=== PATIENT | female | born 1970 | race Caucasian/White ===

== ENCOUNTER 2020-05-04 09:19 | Emergency (ER) | payer OTHER, SELFPAY ==
[2020-05-04 09:20] VITALS: BP 169/95; PULSE 117; RESP 20; TEMP 36.2; O2SAT 98; BMI 48.3
--- NOTE | 2020-05-04 09:30 | EKG12_ITS ---
Test Reason : CP Blood Pressure : / mmHG Vent. Rate : 106 BPM Atrial Rate : 106 BPM P-R Int : 174 ms QRS Dur : 126 ms QT Int : 330 ms P-R-T Axes : 051 -58 066 degrees QTc Int : 438 ms Sinus tachycardia Left axis deviation Left ventricular hypertrophy with QRS widening Cannot rule out Septal infarct , age undetermined Abnormal ECG Confirmed by DARRYL IBARRA, MANGO ([id number]), writer editor LEONARDO PAREDES ([id number]) on 05/08/2020 12:30:06 P M Referred By: SARAHI Confirmed By:NGOZI ANDREWS MD
--- NOTE | 2020-05-04 09:32 | ED.DCSUM_ITS ---
History of Present Illness Chief Complaint: Palpitations Informant: Patient Narrative: 50-year-old female with past medical history of hyperlipidemia, hypertension, diabetes presents with concern for palpitations. States that she awoke approximately 6 hours ago to her heart racing. States that she was having trouble getting her breath. Denies any chest pain. Denies any nausea, vomiting, diaphoresis. States she has not had this previously in the past. Patient is a former smoker. Denies any drugs or alcohol. Patient does not drink excessive caffeine. Denies any history of DVT or pulmonary embolism. Denies any recent long trips or hospitalizations. Past Medical History - Allergies and Home Meds Allergies/Adverse Reactions: Allergies Penicillins Allergy (Verified 05/04/20 09:26) Rash Primary Care Physician: Chuckie Hays,Out of [NON-STAFF] - Prior records reviewed: Yes Past Medical History: - - HTN, HLD, DMII Surgical History: appendectomy, - - tubal ligation Lives: With Family Smoking Status: Former smoker Alcohol: None Drugs: None Review of Systems General: Denies: Chills, Fever, Sweats Eyes: Denies: Visual changes - bilaterally, Diplopia ENT: Denies: Rhinorrhea, Sore throat Cardiovascular: Reports: Palpitations. Denies: Chest pain Respiratory: Reports: Dyspnea. Denies: Cough, Dyspnea on exertion Gastrointestinal: Denies: Abdominal pain, Nausea, Vomiting, Diarrhea, Melena, Hematochezia Genitourinary: Denies: Dysuria, Hematuria, Frequency Musculoskeletal: Denies: Back pain, Extremity Pain Skin: Denies: Rash, Wounds Neurological: Denies: Headache, Weakness, Numbness Physical Exam Vital Signs/Narrative: Vital Signs Temp Pulse Resp BP Pulse Ox 05/04/20 09:20 97.1 F L 117 H 20 H 169/95 H 98 Inital Vital Signs reviewed: Yes General: Well nourished, Well developed, No Acute Distress Head: Normocephalic, Atraumatic Eyes: Perrl, EOMI ENT: Moist mucous membranes, No rhinorrhea Neck: Supple, Nontender Cardiovascular: Regular rhythm, No murmurs, Tachycardia Respiratory: No distress, CTA bilaterally, Chest nontender Abdomen: Soft, Nontender, Nondistended, Normal bowel sounds Back: Nontender, Normal Inspection Extremities: Nontender, No edema Skin: Normal color, No rash Neurological: Alert, Oriented x3, Cranial nerves II-XII grossly intact, Normal Strength, Normal Sensation Psychological: Normal affect, Normal Mood Diagnostic/Tx/Re-eval Chest X-Ray - ED: 1 View, Read by ED Physician, Read by Radiologist, Normal Clinical Impression(s) from Imaging Studies Chest X-Ray 05/04/20 09:55 IMPRESSION: Normal x-ray examination of the chest. Electronically Signed: Angel Singh MD at 10:09 EST Tel , Service support , Laboratory Data 05/04/20 05/04/20 05/04/20 09:35 09:35 09:50 WBC 7.3 RBC 5.41 H Hgb 14.2 Hct 45.5 MCV 84.1 MCH 26.2 L MCHC 31.2 L RDW Std Deviation 42.6 RDW Coeff of [place] 13.8 Plt Count 296 MPV 9.7 Immature Gran % (Auto) 0.300 Neut % (Auto) 68.0 Lymph % (Auto) 24.1 [place] % (Auto) 5.5 Eos % (Auto) 1.7 Baso % (Auto) 0.4 Absolute Neuts (auto) 4.9 Absolute Lymphs (auto) 1.75 Nucleated RBC % 0 D-Dimer Quant (PE/DVT) 0.32 Sodium 135 L Potassium 3.9 Chloride 102 Carbon Dioxide 24.0 Anion Gap 9 BUN 13 Creatinine 0.80 Estim Creat Clear Calc 97.92 Est GFR (MDRD) Af Amer 96 Est GFR (MDRD) Non-Af 80 BUN/Creatinine Ratio 16.2 Glucose 265 H Calcium 9.3 Magnesium 2.1 Troponin I < 0.015 TSH 2.08 - Rhythm Strip Rhythm Strip: Sinus Tach Rate: 106 - EKG Initial EKG Interpretation: Sinus Tachycardia - Is tachycardia at 106 bpm. IL interval of 174 ms. QRS widening at 126 ms. QTC of 438 ms. Interventricular conduction delay. - Medical Decision Making Patient appears well and nontoxic. Initially tachycardic. EKG shows sinus tachycardia with a slightly widened QRS. Troponin negative. TSH negative. D- dimer negative. Chest x-ray interpreted by myself shows no cardiomegaly or infiltrate. Radiology concurs. Patient having no active chest pain. On my reevaluation at 10 AM patient's heart rate has decreased to approximately 93 spontaneously. Pulse oximetry remains above 95%. Spoke with cardiology on-call Dr. Simmons who advised adequate fluid hydration and felt this may be reflex tachycardia from her current medications. Patient will follow up with cardiology within the next 5 to 7 days. Asked to return for new or worsening symptoms. Patient agreeable and stable at time of discharge. Impression: 1. Palpitations 2. Tachycardia?resolved ED Disposition - Plan for ED Patient: Disposition: Home or Assisted Living Instructions: ED Palpitations Referrals: Ridge Bernla MD [STAFF PHYSICIAN] - 5-7 Days
[2020-05-04 09:53] LABS: Absolute Lymphocyte Count 1.75 X10^3/uL (0.83-4.51); Absolute Neutrophil Count 4.9 X10^3/uL (2.0-7.7); Basophil# 0.03 X10^3/uL; Basophil% 0.4 % (0-1); Eosinophil# 0.12 X10^3/uL; Eosinophils% 1.7 % (0-5); Hematocrit 45.5 % (37-47); Hemoglobin 14.2 g/dL (12.0-15.0); Lymphocyte # 1.75 X10^3/ul (4.0); Lymphocyte % 24.1 % (19-41); Mean Corp Hgb Conc 31.2 g/dL (32-36); Mean Corpuscular Hgb 26.2 pg (27.0-32.0); Mean Corpuscular Volume 84.1 fL (81-99); Mean Platelet Vol. 9.7 fl (6.2-12.0); Monocyte% 5.5 % (0-10); NRBC Flagged by Analyzer 0 % (0-5); Neutrophil # 4.93 X10^3/uL (2.7-7.7); Platelet Count 296 K/mm3 (150-450); RBC Distribution Width CV 13.8 % (11.6-14.6); RBC Distribution Width SD 42.6 fl (35.1-43.9); Red Blood Count 5.41 M/mm3 (4.2-5.4); White Blood Count 7.3 K/mm3 (4.4-11.0)
--- NOTE | 2020-05-04 09:55 | RAD_ITS ---
STUDY: X-RAY CHEST REASON FOR EXAM: Female, 50 years old. AFIB TECHNIQUE: Single AP portable view of the chest. COMPARISON: None. FINDINGS: The lungs are clear and expanded. There is no demonstrated pleural abnormality. Normal size heart. Normal mediastinum and fermin. Normal visualized pulmonary arteries. Normal visualized aortic arch and descending thoracic aorta. Normal visualized thoracic spine. Normal visualized ribs, clavicles, and shoulders. There is no demonstrated abnormality of the visualized soft tissue structures of the upper abdomen. RAD/Chest 1 View (Portable) IMPRESSION: Normal x-ray examination of the chest. Electronically Signed: Angel Singh MD at 10:09 EST Tel , Service support ,
[2020-05-04 10:01] LABS: D-Dimer Quantitative (DVT/PE) 0.32 FEU/ug/m (0.27-0.49)
[2020-05-04 10:26] LABS: Anion Gap 9 (5-15); BUN 13 mg/dL (7-18); BUN/Creat Ratio 16.2 RATIO (10-20); Calcium,Total 9.3 mg/dL (8.5-10.1); Chloride 102 mmol/L (98-107); EST Glomerular Filtration Rate 80 mL/min (>60); Est Glom Filt Rate - Afr Amer 96 mL/min (>60); Estimated Creatinine Clearance 97.92 ml/min; Glucose 265 mg/dL (74-106); Magnesium 2.1 mg/dL (1.6-2.6); Potassium 3.9 mmol/L (3.5-5.1); Sodium Level 135 mmol/L (136-145); Thyroid Stim Hormone (TSH) 2.08 uIU/mL (0.358-3.74)
[2020-05-04 12:07] VITALS: BP 117/76; PULSE 92; RESP 18; O2SAT 99
== END 2020-05-04 11:50 | disposition home or self-care (01) ==
PROVIDERS: Emergency Provider Emergency Medicine; PCP Family Medicine
DX: R00.2 Palpitations (principal); R00.0 Tachycardia, unspecified; I10 Essential (primary) hypertension; E11.9 Type 2 diabetes mellitus without complications; Z87.891 Personal history of nicotine dependence
CPT/HCPCS: 71045; 80048; 83735; 84443; 84484; 85025; 85379; 93005; 99285; J7030; A4216

== ENCOUNTER → 2020-07-26 14:32 | Outpatient (CLI) | payer OTHER, SELFPAY ==
[2020-07-06 16:21] VITALS: BMI 46.7
--- NOTE | 2020-07-26 14:33 | ECHOCS_ITS ---
Reason For Study: Arrhythmia Procedure This was a 2D Doppler, Color Flow transthoracic echocardiogram. The study was technically difficult. Contrast injection was performed. Exam performed in department. Left Ventricle Normal LV size. Left ventricular systolic function is normal. The estimated ejection fraction is 60 %. Transmitral doppler flow suggestive of impaired relaxation of left ventricle. No regional wall motion abnormalities noted. Right Ventricle Normal RV size. Normal systolic function. Atria The left atrium is mildly enlarged. Normal right atrium. No doppler evidence for ASD. Mitral Valve There is no mitral annular calcification. Normal mitral valve. Mild (1+) mitral valve insufficiency. Tricuspid Valve Normal tricuspid valve. Mild tricuspid valve insufficiency. Right ventricular systolic pressure estimated to be 27 mmHg. Aortic Valve Trisinus/trileaflet aortic valve. Normal aortic valve. Pulmonic Valve The pulmonic valve is not well visualized. Trivial pulmonic valve insufficiency. Great Vessels Normal sized aortic root. Pericardium/Pleural No pericardial effusion. Medication Diluted definity 3ml given slow IV push to enhance endocardial definition. MMode/2D Measurements & Calculations LVIDd: 5.2 cm IVSd: 1.4 cm Ao root diam: 3.1 cm LVIDs: 3.3 cm LVPWd: 0.96 cm RVDd: 3.2 cm FS: 36.3 % LAV(MOD-bp): 48.1 ml LVAd ap4: 30.6 cm2 SV(MOD-sp4): 61.9 ml LAV(MOD-bp) Indexed: 17.5 ml/m2 LVLd ap4: 7.6 cm LAV(MOD-sp2): 31.4 ml EDV(MOD-sp4): 99.7 ml LAV(MOD-sp4): 58.1 ml EDV(sp4-el): 103.8 ml LVAs ap4: 16.8 cm2 LVLs ap4: 6.2 cm ESV(MOD-sp4): 37.8 ml ESV(sp4-el): 38.4 ml EF(MOD-sp4): 62.1 % EF(sp4-el): 63.0 % SV(sp4-el): 65.4 ml LA A4 area: 21.0 cm2 LA dimension(2D): 4.8 cm RA A4 area: 16.5 cm2 Doppler Measurements & Calculations MV E max julio c: 48.3 cm/sec Lat Peak E' Julio C: 8.6 cm/sec Med Peak E' Julio C: 5.7 cm/sec MV A max julio c: 78.1 cm/sec E/E' lat: 5.6 E/E' med: 8.5 MV E/A: 0.62 Ao V2 max: 181.9 cm/sec LV V1 max: 117.4 cm/sec PA V2 max: 128.1 cm/sec Ao max P.2 mmHg LV V1 max P.5 mmHg Ao V2 mean: 118.7 cm/sec Ao mean P.3 mmHg Ao V2 VTI: 29.3 cm TR max julio c: 245.4 cm/sec TR max P.1 mmHg ECHO/Echo Complete W/ Contrast Interpretation Summary The study was technically difficult. Contrast injection was performed. Left ventricular systolic function is normal. The estimated ejection fraction is 60 %. The left atrium is mildly enlarged. Mild (1+) mitral valve insufficiency. Mild tricuspid valve insufficiency. Trivial pulmonic valve insufficiency. Right ventricular systolic pressure estimated to be 27 mmHg. Transmitral doppler flow suggestive of impaired relaxation of left ventricle Ordering Physician: Ridge Bernal Referring Physician: Latanya Clay Performed By: Davida Crystal, THORCS, RVT
== END ==
PROVIDERS: PCP Family Medicine; Referring Provider Internal Medicine Cardiovascular Disease; Visit Provider Internal Medicine Cardiovascular Disease
DX: I51.7 Cardiomegaly (principal); I49.8 Other specified cardiac arrhythmias
CPT/HCPCS: 93306; Q9957; A4216; C8929

== ENCOUNTER 2022-01-31 09:05 | Emergency (ER) | payer OTHER, SELFPAY ==
[2022-01-31] VITALS (8 sets, daily range): BP systolic 119–145; BP diastolic 52–88; PULSE 67–77; RESP 18–24; TEMP 523.3–974; O2SAT 93–100; BMI 44.4
--- NOTE | 2022-01-31 09:13 | RAD_ITS ---
STUDY: X-RAY - RIGHT SHOULDER REASON FOR EXAM: Female, 51 years old. History of fall. Shoulder pain. TECHNIQUE: 2 view(s) of the shoulder. COMPARISON: None. FINDINGS: Inferior anterior dislocation of the right glenohumeral joint. Normal acromioclavicular joint. Normal acromion. Normal humeral head and visualized proximal humerus. The soft tissue structures are unremarkable. Normal visualized pulmonary apex. RAD/Shoulder min 2 Views IMPRESSION: Inferior anterior dislocation of the right glenohumeral joint. Electronically Signed: Greg Obrien MD at 9:50 EST ,
--- NOTE | 2022-01-31 09:52 | EDS_ITS ---
HPI History of Present Illness HPI Narrative: PainPatient presents with right shoulder injury that occurred today. Patient states she tripped and fell. Patient states she landed on her right shoulder. Patient describes her pain as aching. Patient states it is worse with any movement. Patient states it is better with rest. Patient denies any paresthesias or weakness. Patient denies any other injuries. Patient states that she recently was diagnosed with COVID and states most of her symptoms have resolved. Patient states she was having a cough and runny nose with that. Chief Complaint: Upper Extremity Injury Informant: patient Occured/Mechanism Mechanism/Context: Yes fall Onset/Context/Timing Onset: Today Context: Sudden Onset Timing: Continuous Quality of Pain: Aching Location: Right shoulder Worsened by: Movement Relieved by: Rest Associated Symptoms Associated Symptoms: Negative for Parasthesia, Weakness or Loss of Funtion [facility] Medical History (Updated 01/31/22 @ 11:[address] Tim Poole, DO) Essential hypertension Mixed hyperlipidemia Palpitations Sinus tachycardia Type 2 diabetes mellitus Home Medications aspirin 81 mg tablet,delayed release 81 mg PO DAILY 06/13/20 [History Last Taken Unknown] cholecalciferol (vitamin D3) 25 mcg (1,000 unit) tablet 25 mcg PO DAILY 06/13/20 [History Last Taken Unknown] ferrous sulfate 325 mg (65 mg iron) tablet 325 mg PO DAILY 06/13/20 [History Last Taken Unknown] hydrochlorothiazide 25 mg tablet 25 mg PO DAILY 06/13/20 [History Last Taken Unknown] lisinopril 40 mg tablet 40 mg PO DAILY 06/13/20 [History Last Taken Unknown] metformin 1,000 mg tablet 1,000 mg PO BID #1 TAB 06/13/20 [Rx Last Taken Unknown] multivitamin 1 tablet PO DAILY #1 TAB 06/13/20 [Rx Last Taken Unknown] omeprazole 20 mg tablet,delayed release 20 mg PO DAILY 06/13/20 [History Last Taken Unknown] dulaglutide 1.5 mg/0.5 mL subcutaneous pen injector (Trulicity) 1.5 mg subcut QWEEK 07/06/20 [History Last Taken Unknown] ropinirole 0.25 mg tablet (Requip) 0.25 mg PO QHS 07/06/20 [History Last Taken Unknown] sertraline 50 mg tablet 50 mg PO DAILY 07/06/20 [History Last Taken Unknown] hydrocodone-acetaminophen 5-325mg 5mg-325mg 1 tab PO Q6H PRN PRN Pain 3 days #10 TABLETS 01/31/22 [Rx Last Taken Unknown] Allergy/AdvReac Type Severity Reaction Status Date / Time Penicillins Allergy Rash Verified 11/24/20 12:50 Family History Mother Atrial fibrillation Congestive heart failure (CHF) Brother Diabetes Surgical History History of appendectomy History of tubal ligation Social History Smoking Status: Former smoker alcohol intake: current details: occasional substance use type: does not use caffeine: Yes Type: coffee Number of servings: 1 ROS ROS ED Constitutional Constitutional ED: Denies chills or fever(s) Eyes Eyes: Denies blurry vision or change in vision ENT ENT ED: Reports rhinorrhea; Denies sore throat Cardiovascular Cardiovascular: Denies chest pain or palpitations Respiratory/Chest Respiratory/Chest: Reports cough; Denies dyspnea Gastrointestinal Gastrointestinal: Denies nausea or vomiting Genitourinary Genitourinary ED: Denies dysuria or hematuria Musculoskeletal Musculoskeletal: Denies back pain or neck pain Integumentary Denies abscess or rash Neurologic Neurologic: Denies headache(s) or weakness Allergic/Immunologic Allergic/Immunologic ED: Denies mouth swelling or urticaria EXAM Physical Exam Const Vital Signs: 01/31/22 09:06 01/31/22 09:37 Temperature 974 F H Temperature Source Temporal Pulse Rate 67 Respiratory Rate 18 Blood Pressure 127/52 H Blood Pressure Mean 77 Pulse Ox 99 93 Oxygen Delivery Method Room Air Room Air Positive well nourished, well developed and obese General Appearance ED: well developed and NAD Nutritional Appearance: obese HEENT Reports moist mucous membranes Neck full ROM Extremity Extremity Narrative: There is tenderness and deformity of the right shoulder. There is no bony crepitance or step-off. Range of motion was limited in all motions of the right shoulder secondary to pain. Radial pulses are equal bilateral. Strength is 5/5 in the radial, median, and ulnar areas. Sensation was intact to light touch in the radial, median, ulnar, and axillary areas. There is full range of motion of the elbow, wrist, and hand. Neuro oriented x3, CN's II-XII intact bilaterally, moves all extremities, no focal motor deficits and no sensory deficits noted Sensorium / Orientation: alert Motor Exam: strength 5/5 throughout Psych mental status grossly normal [facility] [place] Narrative Medical decision making narrative: X-rays of the right shoulder were obtained. There are 2 views. On my interpretation, there is a dislocation of the glenohumeral joint. There are no acute fractures noted. Radiologist also interpreted the x-rays and agrees. Patient was advised of the need for sedation for reduction of her shoulder. Patient was advised of the procedure. Patient was given the opportunity ask questions. She had no further questions. Patient signed consent. Patient was placed on continuous cardiac and pulse oximeter monitors. Patient was given a total dose of 100 mg of propofol. The shoulder was reduced using traction countertraction method. Patient tolerated the procedure well. There were no hypoxic episodes noted. There are no dysrhythmias noted. Repeat x-rays of the right shoulder were obtained. There are 2 views. On my interpretation, the dislocation has been reduced. There are no acute fractures. Patient was placed in a sling and swath. Patient was instructed to keep ice on her right shoulder. Patient was given a prescription for a short course of [place]. Patient was instructed to follow-up with her primary care physician in 5 to 7 days. Patient was also given a referral for orthopedics. Patient understood and was agreeable with the plan. All questions were answered. Radiography Diagnostic Testing: Clinical Impression(s) from Imaging Studies Shoulder X-Ray 01/31/22 09:13 IMPRESSION: Inferior anterior dislocation of the right glenohumeral joint. Electronically Signed: Greg Obrien MD at 9:50 EST , Procedures Other Procedures Procedure(s): Patient was advised of the need for sedation for reduction of her shoulder. Patient was advised of the procedure. Patient was given the opportunity ask questions. She had no further questions. Patient signed consent. Patient was placed on continuous cardiac and pulse oximeter monitors. Patient was given a total dose of 100 mg of propofol. The shoulder was reduced using traction countertraction method. Patient tolerated the procedure well. There were no hypoxic episodes noted. There are no dysrhythmias noted. Discharge Plan Triage Chief Complaint: Upper Extremity Injury ED Provider: Tim Poole Dx/Rx/DC Orders Clinical Impression: Anterior dislocation of right shoulder, Essential hypertension, Type 2 diabetes mellitus, Morbid obesity with BMI of 40.0-44.9, adult Instructions: ED Dislocation: Shoulder (Reduced) Prescriptions: New hydrocodone-acetaminophen [hydrocodone-acetaminophen] 1 TABLET tablet 1 tab PO Q6H PRN PRN (Reason: Pain) 3 Days Qty: 10 0RF No Action Trulicity 1.5 mg/0.5 mL pen injector 1.5 mg SC QWEEK sertraline 50 mg tablet 50 mg PO DAILY ropinirole [Requip] 0.25 mg tablet 0.25 mg PO QHS Rx Instructions: administer 1-3 hours before bedtime metformin 1,000 mg tablet 1,000 mg PO BID Qty: 1 0RF ferrous sulfate 325 mg (65 mg iron) tablet 325 mg PO DAILY multivitamin Tablet 1 tablet PO DAILY Qty: 1 0RF lisinopril 40 mg tablet 40 mg PO DAILY omeprazole 20 mg tablet,delayed release (DR/EC) 20 mg PO DAILY hydrochlorothiazide 25 mg tablet 25 mg PO DAILY cholecalciferol (vitamin D3) 25 mcg (1,000 unit) tablet 25 mcg PO DAILY aspirin 81 mg tablet,delayed release (DR/EC) 81 mg PO DAILY Primary Care Provider: Latanya Clay Referrals: Latanya Clay MD [Primary Care Provider] - 5-7 Days Henry Conrad MD [Med Staff - Active Staff] - 5-7 Days Disposition Disposition: Home, Self Care
[2022-01-31] MEDS: Morphine 4 MG/ML Syringe IV (10:41)
--- NOTE | 2022-01-31 11:12 | RAD_ITS ---
STUDY: X-RAY - RIGHT SHOULDER REASON FOR EXAM: Female, 51 years old. POST REDUCTION TECHNIQUE: 2 view(s) of the shoulder. COMPARISON: Comparison is made with prior study done earlier today. FINDINGS: Satisfactory reduction of the right shoulder dislocation. Normal acromioclavicular joint. Normal acromion. Normal humeral head and visualized proximal humerus. The soft tissue structures are unremarkable. Normal visualized pulmonary apex. RAD/Shoulder min 2 Views IMPRESSION: Satisfactory reduction of the right shoulder dislocation. Electronically Signed: Greg Obrien MD at 11:22 EST ,
[2022-01-31] MEDS: Propofol 200 MG/20 ML Vial IV BOLUS (11:16)
== END 2022-01-31 11:50 | disposition home or self-care (01) ==
PROVIDERS: Emergency Provider Emergency Medicine; PCP Family Medicine; Visit Provider Emergency Medicine
DX: S43.014A Anterior dislocation of right humerus, initial encounter (principal); E66.01 Morbid (severe) obesity due to excess calories; E11.9 Type 2 diabetes mellitus without complications; I10 Essential (primary) hypertension; E78.2 Mixed hyperlipidemia; Z87.891 Personal history of nicotine dependence; W18.30XA Fall on same level, unspecified, initial encounter
CPT/HCPCS: 23650; 73030; 96374; 99152; 99284; J7030; A4216

== ENCOUNTER → 2022-02-27 | Outpatient (CLI) | payer OTHER, SELFPAY ==
--- NOTE | 2022-02-27 12:45 | RAD_ITS ---
CLINICAL HISTORY: Female, 52 years old. Right shoulder pain. PROCEDURE: ARTHROGRAM - RIGHT SHOULDER CONSENT: The procedure as well as the benefits and possible complications including infection and bleeding were expanded to the patient. Informed consent was obtained. FLUOROSCOPY TIME (if supplied): (36 seconds) minutes/seconds. Injection Information: 10 cc of dilute MRI contrast. Number of images obtained: 5 TECHNIQUE: (All elements of maximal sterile barrier technique followed, including US elements as applicable) The patient was in the supine position. The overlying skin was prepped and draped in the usual sterile fashion. Following local anesthetic application and under direct fluoroscopic guidance, a 22-gauge spinal needle was placed into the shoulder joint. 2 cc of ISOVUE 300 was injected for confirmation. Following this, 10 cc of dilute MRI contrast was injected the patient tolerated the procedure well. RAD/Arthrogram Shoulder w/ MRI IMPRESSION: Successful right shoulder arthrogram. Electronically Signed: Greg Obrien MD at 13:46 EST ,
--- NOTE | 2022-02-27 12:49 | MRI_ITS ---
STUDY: MRI ARTHROGRAM OF RIGHT SHOULDER REASON FOR EXAM: Female, 52 years old. History of anterior dislocation and bony Bankart lesion. TECHNIQUE: Standardized fat and water weighted pulse sequences were obtained in all 3 orthogonal planes after the intra-articular administration of a solution containing 10 cc of Clariscan contrast. COMPARISON: X-rays of the right shoulder dated February 06, 2022 showing bony Bankart. FINDINGS: Adequate distention of the glenohumeral joint with contrast. Marked thinning/attenuation of the supraspinatus tendon with a small full-thickness partial width tear of the far anterior fibers measuring 5 mm in diameter (coronal series 3 images 11-14). Marked thinning/attenuation of the infraspinatus tendon with no full thickness tear (coronal series 4 images 7-11). Subscapularis tendinosis with thickening without a full-thickness tear (axial series 2 images 10-14). Normal teres minor tendon. Normal supraspinatus muscle. Normal infraspinatus muscle. Normal subscapularis muscle. Normal teres minor muscle. Mild thinning of the articular cartilage of the glenohumeral joint (axial series 2 image 10). Small Hill-Sachs deformity (axial series 2 image 7). Normal biceps labral complex. Normal intracapsular long biceps tendon. Blunting of the anterior and inferior glenoid labrum with a minimally displaced bony Bankart lesion (axial series 2 images 11-15). Normal capsulo- ligamentous complex. Normal rotator interval. AC joint hypertrophy with narrowing of the subacromial space (coronal series 4 image 16). There is a Type II morphology (curved), with a neutral orientation. There is no subacromial-subdeltoid bursal fluid. Normal visualized coracohumeral and coracoacromial ligaments. Normal quadrilateral space. Normal axillary space. Normal deltoid muscle. Normal trapezius muscle. MRI/Upper Ext Jt Only W/Contrast IMPRESSION: Marked thinning/attenuation of the supraspinatus tendon with a small full-thickness partial width tear of the far anterior fibers. Thinning/attenuation of the infraspinatus with no full-thickness tear. Subscapularis tendinosis with thickening without a full-thickness tear. Mild thinning of the articular cartilage of the glenohumeral joint. Small Hill-Sachs deformity. Blunting of the anterior and inferior glenoid labrum with a minimally displaced bony Bankart lesion. AC joint hypertrophy with narrowing of the subacromial space. Electronically Signed: Mynor Simpson, at 10:46 EST ,
[2022-02-27] MEDS: Lidocaine 2% (5ml sdv) 5 ML VIAL.MPF INFILT (12:55)
[2022-02-27] MEDS: Gadoterate Meglumine Diluted 10 ML, Iopamidol 5 ML, Lidocaine 1% (20 ml mdv) 5 ML, Epin... INTRAARTIC (12:58)
[2022-02-27] MEDS: Iopamidol 10 ML in Syringe 1 EACH 600 ML INTRAARTIC (12:58)
== END | disposition home or self-care (01) ==
LOC: RAD 12:28
PROVIDERS: PCP Family Medicine; Referring Provider Orthopaedic Surgery Sports Medicine; Visit Provider Orthopaedic Surgery Sports Medicine
DX: S43.014A Anterior dislocation of right humerus, initial encounter (principal); M75.121 Complete rotator cuff tear or rupture of right shoulder, not specified as traumatic; M24.111 Other articular cartilage disorders, right shoulder; M75.81 Other shoulder lesions, right shoulder
CPT/HCPCS: 23350; 73222; 77002; Q9967

== ENCOUNTER 2022-03-06 16:30 | Outpatient (RCR) | payer OTHER, SELFPAY ==
--- NOTE | 2022-02-18 14:57 | HP.PTEVAL ---
Patient's Visit Information SINAN SPENCER is a 51 year old F referred to Physical Therapy by Dr. Henry Conrad MD with a diagnosis of Anterior Dislocation R shoulder. Date of Evaluation: 02/18/22 Physical Therapist: ELIZABETH [place] - Visit Plan Frequency: 2-3x /Week Duration: 2 Months Plan: 2-3X/ week for 8 weeks for R PROM, AAROM, AROM, scapular and and RC strengthening per tolerance below 90 degrees and no ER greater than 40 degrees due to anterior dislocation. Please no extreme R shoulder horizontal ABD ROM due to dislocation as well for 6 weeks ( 03-20-22) - Subjective She tripped on the crack on the driveway and she fell with her arms outstretched and she dislocated her R shoulder. DOI was 01-31-22. She saw Dr Artis on 02-06-22. There was a fracture in her shoulder and anterior dislocation. She had to go to the ER and they had to but her shoulder back in place. He has been trying to get an MRI but the insurance has denied it. She is in the normal sling for 2 weeks. She rolled over on her R side in the middle of the night the other night and when she moved it hurt so bad. She does not think that it was re-dislocated and then it was sore all weekend. said to not use her arm and only bend her elbow. - Pain R shoulder pain Pain Intensity (Out of 10): 0 Pain Intensity Range: 8 Comment: with movement - Objective Pt is to wear her sling until this Wed. R handed: R shoulder PROM: flexion 160 degrees and Abd to 160 degrees. ER to 40 degrees (but therapist stopped the ROM due to avoiding end range per order for 6 weeks). With HEP and ice/ heat as needed. - Balance/Special Test Scores Quick DASH Score: 65.9075 - Goals Goal 1:: I HEP Goal Time Frame: 8-12 Weeks Goal 2:: Be able to return to full use of R arm pain free Goal Time Frame: 8-12 Weeks Goal 3:: Increase R shoulder Full Active ROM pain free Goal Time Frame: 8-12 Weeks - Rehabilitation Potential Rehabilitation Potential: Good - Anticipated Interventions Patient/Client Instruction: Educate patient on: Condition, Plan of Care For the Purpose of:: To decrease pain, To increase ROM, To improve nutrient delivery to tissue, To improve muscle performance and motor function, To improve ability to perform ADL's, To increase tolerance to activity/condition/position, To improve performance and independence with ADL's, To decrease level of supervision to perform tasks, To decrease soft tissue restriction, To increase flexibility/ROM Therapeutic Exercise to Include: Strength training, Postural training, Flexibilty training, Active ROM, Scapular Strength/Stabilization For the Purpose of:: To decrease pain, To increase ROM, To improve nutrient delivery to tissue, To improve muscle performance and motor function, To improve ability to perform ADL's, To increase tolerance to activity/condition/position, To decrease soft tissue restriction, To increase flexibility/ROM Manual Therapy Techniques to Include: Passive ROM For the Purpose of:: To increase ROM Thank you for the opportunity to evaluate your patient. For Medicare and Medicare HMO plans, please review the plan of care and approve it. It will need to be FAXED BACK to us at [phone] for Medicare purposes. For Medicare only, by signing this I certify the plan of care. Please let me know if there are questions or concerns regarding this plan of care. Physician Signature: Date:
--- NOTE | 2022-03-12 10:36 | HP.PT.NRP ---
SINAN SPENCER was seen in my office for initial evaluation on 02/18/22. The following Plan of Care was established for this patient: Initial Frequency: 2-3x /Week Initial Duration: 2 Months Patient/Client Instruction: Educate patient on: Condition, Plan of Care For the Purpose of:: To decrease pain, To increase ROM, To improve nutrient delivery to tissue, To improve muscle performance and motor function, To improve ability to perform ADL's, To increase tolerance to activity/condition/position, To improve performance and independence with ADL's, To decrease level of supervision to perform tasks, To decrease soft tissue restriction, To increase flexibility/ROM Therapeutic Exercise to Include: Strength training, Postural training, Flexibilty training, Active ROM, Scapular Strength/Stabilization For the Purpose of:: To decrease pain, To increase ROM, To improve nutrient delivery to tissue, To improve muscle performance and motor function, To improve ability to perform ADL's, To increase tolerance to activity/condition/position, To decrease soft tissue restriction, To increase flexibility/ROM Manual Therapy Techniques to Include: Passive ROM For the Purpose of:: To increase ROM This patient was last seen in our office . Pertinent comments regarding their Physical therapy will appear below: At this point I will be discontinuing this patient from physical therapy. I would be happy to see this patient again in the future if found appropriate by the physician. Thank you! Bonny Gonzalez, ELIZABETH Balance/Gait/Functional tests - Balance/Special Test Scores Quick DASH Score: [phone]
== END 2022-03-06 19:00 | disposition home or self-care (01) ==
LOC: PT 16:30
PROVIDERS: PCP Family Medicine; Referring Provider Orthopaedic Surgery Sports Medicine; Visit Provider Orthopaedic Surgery Sports Medicine
DX: S43.014A Anterior dislocation of right humerus, initial encounter (principal)
CPT/HCPCS: 97140; 97161

== ENCOUNTER 2022-05-22 05:49 | Day surgery (SDC) | payer OTHER, SELFPAY ==
--- NOTE | 2022-05-16 07:32 | EKG12_ITS ---
Test Reason : PRE-OP Blood Pressure : / mmHG Vent. Rate : 073 BPM Atrial Rate : 073 BPM P-R Int : 154 ms QRS Dur : 126 ms QT Int : 392 ms P-R-T Axes : 041 -54 022 degrees QTc Int : 431 ms Sinus rhythm with occasional Premature ventricular complexes Left axis deviation Left bundle branch block Abnormal ECG Confirmed by OMID IBARRA, BARBARA ([id number]), editorial specialist LEONARDO PAREDES ([id number]) on 05/17/2022 12:43:44 PM Referred By: Henry Conrad Confirmed By:BARBARA ANNE MD
[2022-05-16 08:49] LABS: Hemoglobin A1c 6.6 % (3.8-5.6)
[2022-05-16 08:56] LABS: Hematocrit 39.5 % (37-47); Hemoglobin 12.3 g/dL (12.0-15.0); Mean Corp Hgb Conc 31.1 g/dL (32-36); Mean Corpuscular Hgb 27.6 pg (27.0-32.0); Mean Corpuscular Volume 88.6 fL (81-99); Mean Platelet Vol. 9.3 fl (6.2-12.0); Platelet Count 245 K/mm3 (150-450); RBC Distribution Width CV 13.2 % (11.6-14.6); RBC Distribution Width SD 42.6 fl (35.1-43.9); Red Blood Count 4.46 M/mm3 (4.2-5.4); White Blood Count 7.3 K/mm3 (4.4-11.0)
[2022-05-16 08:59] LABS: Anion Gap 7 (5-15); BUN 11 mg/dL (7-18); BUN/Creat Ratio 17.6 RATIO (10-20); Chloride 106 mmol/L (98-107); Creatinine, Serum 0.63 mg/dL (0.55-1.02); EST Glomerular Filtration Rate 105 mL/min (>60); Est Glom Filt Rate - Afr Amer 128 mL/min (>60); Glucose 165 mg/dL (74-106); Potassium 4.1 mmol/L (3.5-5.1); Sodium Level 140 mmol/L (136-145)
[2022-05-22 06:20] VITALS: BP 129/69; PULSE 65; RESP 16; TEMP 36.4; O2SAT 97; BMI 45.9
[2022-05-22] MEDS: Lactated Ringers 1,000 ML 15 ML IV ×2 (06:20→08:05)
--- NOTE | 2022-05-22 07:01 | PCM.HP.STD ---
HPI - General HPI Narrative SINAN SPENCER, is a 52 F who presents for right shoulder scope, stabilization, RCR. OK to proceed, no changes to h and p. Right shoulder marked. RAB discussed and post op care/narcotic counselling. MR#: [id number] Acct: [id number] Name:SINAN YEBOAH Rep #: [id number] : 1970 ? ? Provider: Dr. Henry Conrad MD Age/Sex:? 52/F ? ? Location: [facility] – [place] Status: Signed Intake Vital Signs ? 02/06/2209:11 Height 6 ft 1 in Intake Visit Reasons:?RIGHT SHOULDER Allergies Penicillins Allergy (Verified 03/07/22 08:12) Rash Medications aspirin 81 mg tablet,delayed release 81 mg PO DAILY 06/13/20 [History Confirmed 03/07/22] cholecalciferol (vitamin D3) 25 mcg (1,000 unit) tablet 25 mcg PO DAILY 06/13/20 [History Confirmed 03/07/22] ferrous sulfate 325 mg (65 mg iron) tablet 325 mg PO DAILY 06/13/20 [History Confirmed 03/07/22] hydrochlorothiazide 25 mg tablet 25 mg PO DAILY 06/13/20 [History Confirmed 03/07/22] lisinopril 40 mg tablet 40 mg PO DAILY 06/13/20 [History Confirmed 03/07/22] metformin 1,000 mg tablet 1,000 mg PO BID #1 TAB 06/13/20 [Rx Confirmed 03/07/22] multivitamin 1 tablet PO DAILY #1 TAB 06/13/20 [Rx Confirmed 03/07/22] omeprazole 20 mg tablet,delayed release 20 mg PO DAILY 06/13/20 [History Confirmed 03/07/22] dulaglutide 1.5 mg/0.5 mL subcutaneous pen injector (Trulicity) 1.5 mg subcut QWEEK 07/06/20 [History Confirmed 03/07/22] ropinirole 0.25 mg tablet (Requip) 0.25 mg PO QHS 07/06/20 [History Confirmed 03/07/22] sertraline 50 mg tablet 50 mg PO DAILY 07/06/20 [History Confirmed 03/07/22] hydrocodone-acetaminophen 5-325mg 5mg-325mg 1 tab PO Q6H PRN PRN Pain 3 days #10 TABLETS 01/31/22 [Rx Confirmed 03/07/22] PFSH Medical History?(Updated 03/07/22 @ 08:48 by Henry Conrad MD) Essential hypertension Instability of right shoulder joint Mixed hyperlipidemia Palpitations Right rotator cuff tear Sinus tachycardia Type 2 diabetes mellitus Surgical History? History of appendectomy History of tubal ligation Family History? Mother Atrial fibrillation Congestive heart failure (CHF)Brother Diabetes Social History? Smoking Status:? Former smoker alcohol intake:? current details:? occasional substance use type:? does not use caffeine:? Yes Type: coffee Number of servings: 1 HPI RIGHT SHOULDER Details: Parts of this documentation were recorded by a scribe, this documentation accurately reflects the service provided and the decisions made by me, Dr. Henry Conrad MD 03/05/22 1153. SINAN SPENCER is a 52 year old F here today for follow-up right shoulder MRI.? She had a fall in the driveway had a shoulder dislocation.? She is here today to review the MRI results.? Still feels sore and weak.? She has been doing for some physical therapy.? Feels little bit stiff.? She does some babysitting. Ortho Exam General General: Yes no acute distress Neurologic: Yes alert and Yes oriented x3 Psychologic: Yes reasonable and appropriate Right Shoulder Skin/Wound: Yes CDI, No ecchymosis, No erythema and No swelling Testing: Positive Hawkin's, Neer's, AROM-Forward Elevation 0-180 and Apprehension Test; Negative Drop Arm SHOULDER: Length and forward elevation 4+/5 external rotation strength 5/5.? External rotation is to about 25 degrees versus 50 degrees on the contralateral side.? Hand is warm and well-perfused strong radial pulse normal axillary nerve sensation. Supplemental Info MR#:? [id number] Acct: [id number] Name:SINAN YEBOAH Rep #: [id number] :?? 1970 F 52 ? From:? ? Mynor Simpson MD PCP: Dr. Latanya Clay MD ? Status: REG CLI Study: Upper Ext Jt Only W/Contrast ? Date of Exam: 02/27/22 Exam# [id number] ? Ordering Dr:? Henry Conrad MD STUDY: ? MRI ARTHROGRAM OF RIGHT SHOULDER REASON FOR EXAM: ? Female, 52 years old.? History of anterior dislocation and bony Bankart lesion. TECHNIQUE: ? Standardized fat and water weighted pulse sequences were obtained in all 3 orthogonal planes after the intra-articular administration of a solution containing 10 cc of Clariscan contrast. COMPARISON: ? X-rays of the right shoulder dated February 06, 2022 showing bony Bankart. FINDINGS: Adequate distention of the glenohumeral joint with contrast. Marked thinning/attenuation of the supraspinatus tendon with a small full-thickness partial width tear of the far anterior fibers measuring 5 mm in diameter (coronal series 3 images 11-14). Marked thinning/attenuation of the infraspinatus tendon with no full thickness tear (coronal series 4 images 7-11). Subscapularis tendinosis with thickening without a full-thickness tear (axial series 2 images 10-14). Normal teres minor tendon. Normal supraspinatus muscle.? Normal infraspinatus muscle.? Normal subscapularis muscle.? Normal teres minor muscle. Mild thinning of the articular cartilage of the glenohumeral joint (axial series 2 image 10).? Small Hill-Sachs deformity (axial series 2 image 7). Normal biceps labral complex.? Normal intracapsular long biceps tendon. Blunting of the anterior and inferior glenoid labrum with a minimally displaced bony Bankart lesion (axial series 2 images 11-15).? Normal capsulo- ligamentous complex.? Normal rotator interval. AC joint hypertrophy with narrowing of the subacromial space (coronal series 4 image 16).? There is a Type II morphology (curved), with a neutral orientation. There is no subacromial-subdeltoid bursal fluid. Normal visualized coracohumeral and coracoacromial ligaments.? Normal quadrilateral space.? Normal axillary space. Normal deltoid muscle.? Normal trapezius muscle. MRI/Upper Ext Jt Only W/Contrast IMPRESSION: Marked thinning/attenuation of the supraspinatus tendon with a small full-thickness partial width tear of the far anterior fibers. ? Thinning/attenuation of the infraspinatus with no full-thickness tear. ? Subscapularis tendinosis with thickening without a full-thickness tear. ? Mild thinning of the articular cartilage of the glenohumeral joint. ? Small Hill-Sachs deformity. ? Blunting of the anterior and inferior glenoid labrum with a minimally displaced bony Bankart lesion. ? AC joint hypertrophy with narrowing of the subacromial space. ? Electronically Signed: Mynor Simpson, at 10:46 EST , Coding Level of Care Code Off vis,est,level 4 Diagnoses Right rotator cuff tear? M75.101 Instability of right shoulder joint? M25.311 Time Spent (min) 30 Assessment and Plan Assessment and Plan (1) Right rotator cuff tear: ?Status:?Acute ?Plan: 52-year-old female with a right shoulder instability and labrum tear as well as a small bony Bankart lesion and a small anterior leading edge supraspinatus tendon tear.? We discussed the pros and cons risks and benefits of nonsurgical versus surgical treatment for this.? Nonsurgical may have a high risk of redislocation enlarging of the tear or continued weakness or instability of the shoulder.? Surgical risks were also discussed surgery would be right shoulder arthroscopy, rotator cuff repair, stabilization and repair Bankart lesion.? We discussed the diagnosis prognosis and aftercare associate with this 2 to 3 weeks and sling 3 months before strengthening and 4.5 months usually before going back to aggressive activities.? She would like to go ahead with surgery signed the consent form for that as well as possible need for blood products. Pros and cons risks and benefits were discussed with the patient including but not limited to infection, pain, stiffness, bleeding, damage to surrounding structures, neurovascular injury, recurrence or retear, failure or wear of hardware or fixation, instability, fracture, deep vein thrombosis and pulmonary embolism, anesthetic risks, patient dissatisfaction, need for further surgery and other risks.? Patient understood and wished to proceed with surgery, and signed the informed consent documentation. [facility] Medical History (Updated 05/15/22 @ 12:10 by Judy Laurent) Alcohol use Anxiety Arthritis Cardiology follow-up encounter Depression Diabetes Dietary restriction Essential hypertension Gastric reflux High cholesterol History of echocardiogram Hypertension Instability of right shoulder joint Leg cramps Low iron Mixed hyperlipidemia Palpitations Restless legs Right rotator cuff tear Shortness of breath on exertion Sinus tachycardia Smoker Type 2 diabetes mellitus Wears glasses Home Medications cholecalciferol (vitamin D3) 25 mcg (1,000 unit) tablet 25 mcg PO DAILY 06/13/20 [History Last Taken Unknown] hydrochlorothiazide 25 mg tablet 25 mg PO DAILY 06/13/20 [History Last Taken Unknown] lisinopril 40 mg tablet 40 mg PO DAILY 06/13/20 [History Last Taken 05/22/22 04:30] multivitamin 1 tablet PO DAILY #1 TAB 06/13/20 [Rx Last Taken Unknown] omeprazole 20 mg tablet,delayed release 20 mg PO DAILY 06/13/20 [History Last Taken 05/22/22 04:30] dulaglutide 1.5 mg/0.5 mL subcutaneous pen injector (Trulicity) 1.5 mg subcut KAY 07/06/20 [History Last Taken Unknown] ropinirole 0.25 mg tablet (Requip) 0.25 mg PO QHS 07/06/20 [History Last Taken Unknown] sertraline 50 mg tablet 50 mg PO DAILY 07/06/20 [History Last Taken Unknown] rosuvastatin 5 mg tablet (Crestor) 5 mg PO QHS 05/15/22 [History Last Taken Unknown] Allergy/AdvReac Type Severity Reaction Status Date / Time Penicillins Allergy Rash Verified 05/22/22 06:40 Family History Mother Atrial fibrillation Congestive heart failure (CHF) Brother Diabetes Surgical History History of appendectomy History of tubal ligation Social History Smoking Status: Former smoker alcohol intake: current details: occasional substance use type: does not use caffeine: Yes Type: coffee Number of servings: 1 Vital Signs Vital Signs Vital Signs: 05/22/22 06:20 05/22/22 06:20 Temperature 97.5 F L Temperature Source Temporal Pulse Rate 65 Respiratory Rate 16 Respiratory Pattern Normal Blood Pressure 129/69 H Blood Pressure Mean 89 Blood Pressure Source Monitor Blood Pressure Position Sitting Blood Pressure Location Right Arm Pulse Ox 97 Oxygen Delivery Method Room Air Weight Weight: 348 lb 5.286 oz Body Mass Index (BMI) 45.9 Results Lab / Micro Data Result Diagrams: 05/16/22 07:47 05/16/22 07:47
[2022-05-22] MEDS: Clindamycin 900 MG/50 ML BAG 75 MG IV (07:26)
[2022-05-22 07:51] LABS: Bedside Glucose 176 mg/dL (74-106)
[2022-05-22] MEDS: Epinephrine (1 mg/ml) 1 MG/ML VIAL (08:12)
--- NOTE | 2022-05-22 09:37 | OP.PCM_ITS ---
Problems Associated Problem List Diagnoses (1) Instability of right shoulder joint: (2) Right rotator cuff tear: Report of Operation Date of Procedure: 05/22/22 Pre-Operative Diagnosis: right shoulder RC tear and labrum tear w bony bankart Post-Operative Diagnosis: right shoulder RC tear and labrum tear w bony bankart Surgery/Procedure Performed:: right shoulder arthroscopy, subacromial decompression, repair labrum tear, repair rotator cuff tear Surgeon: Henry Conrad Type of Anesthesia: Block,Regional and General Anesthesiologist: Juan Diego Ngo Estimated Blood Loss (mL): 100 Description of Procedure: Patient brought to the operating room theater. Administered general anesthetic. Placed right side up lateral decubitus. All bony prominences padded. Axillary roll used. Beanbag positioner used. SCDs on the legs. Right upper extremity prepped and draped in the usual sterile fashion chlorhexidine-based prep solution allowing over 3 minutes drying time prior to draping. Clindamycin IV 900 mg given prior to the start of the procedure due to penicillin allergy. Preoperative timeout performed to confirm the site patient and surgery. Patient's upper extremity was placed in 30 degrees of abduction with the 5 pounds traction in line with the star sleeve positioner. Began by inserting the arthroscope into the intra-articular portion of the shoulder. Did a diagnostic arthroscopy. Cartilage on both sides was normal. Subscapularis appeared normal. Biceps was normal root stable. There is an obvious anteroinferior labral tear with a bony Bankart fragment in the mid aspect of the labrum, and the mid aspect of the labrum was truncated at 3 oclock position. There is an un dersurface approximately 50% partial-thickness tear of the leading edge of the supraspinatus. No obvious other abnormalities noted. Inserted two 7 x 7 mm cannulas just posterior to the biceps root through the rotator interval and just above the subscapularis tendon. Began by using the elevator to elevate the labrum from the anterior inferior glenoid. I used the shaving device to create a bony bleeding bed for healing. There is a small bony fragment superiorly. I then used a fiber link suture at the superior aspect of the labral tear. I then passed a simple stitch using fiber tape. I used Arthrex 2.9 mm bio composite push lock anchors. I passed these sutures at the 3:00 and 4:00 positions as well as passed another labral tape inferiorly in the same simple suture configuration at 5:00. Cut sutures short. This achieved good recreation of the bumper and fixating down of the bony Bankart fragment. I created shift from inferior to superior and anterior to posterior. Took pictures throughout saved onto the system. I then passed the arthroscope into the subacromial space. I performed a bursectomy for small amount of inflammatory bursitis. I then performed a subacromial decompression of the anterior inferior leading edge of the acromion to flat margins of about 4 mm. Then identified the tear. There was 1 small area of full-thickness tearing about 2 mm from anterior to posterior as well as I had previously identified this with the spinal needle and there was areas of high-grade partial-thickness tearing anterior SS. Therefore elected to do trans tendon type repair. I used 2 Arthrex all suture self punching anchors anterior and posterior to the tear. I seated these fully. I then passed the working stitch opposite ends through the looped end of the suture and then passed these in a knotless configuration to create a horizontal mattress stitch across the tear site. I had also used a small pick instrument to create a bony bleeding bed for healing as well as minor amount of using the daryl again to create a healing surface. Final pictures taken and saved onto the system. Case terminated. Shoulder thoroughly irrigated. Wounds cleaned wet and dry dressing followed by closure of the portals with 3-0 Monocryl sutures Steri-Strips Adaptic 4 x 4 gauze abdominal pad dressings and cloth tape with a sling for the upper extremity. Patient woken up from the general anesthetic transferred off the operating room table and taken to postanesthetic care unit in stable condition. All sponge needle instrument counts correct no complications. Plan for the patient discharged home according to day surgery criteria. Complications none Admit VTE Documentation VTE Present on Admission: No VTE Mechan Device Prophylaxis: SCD's VTE Pharm Prophylaxis ordered?: No Procedures Musculoskeletal [id number]: Other Procedure See Report
[2022-05-22 09:48] VITALS: BP 120/63; BP 129/69; PULSE 75; RESP 18; TEMP 36.5; O2SAT 94
--- NOTE | 2022-05-22 09:48 | DCINST_ITS ---
Discharge Instructions Diet Discharge Diet: No restrictions Activity Discharge Activity: May Not Drive Ice area for (Minutes): 10 Keep extremity elevated above heart level: Operative Extremity Additional Activity Instructions:: sling, pendulums four times a day Dressing / Incision Call your doctor if your incision/area has: Continuous Slow Oozing, Sudden Increased Bleeding, Increased Pain/ Swelling, Increased Redness, Foul Smelling Discharge and Swelling at the incision site Call your doctor if you observe: Fever of 101 or Higher Remove Dressing in: leave in place till F/U Follow Up Care Please Follow Up With: Henry Conrad MD When: 2 days Test Results: Test results from this visit will be discussed in further detail at your follow- up appointment, if applicable. Discharge Plan Admission Attending Provider: Henry Conrad Primary Care Provider: Latanya Clay Instructions Patient Instructions: After Shoulder Arthroscopy Discharge Orders/Prescriptions Prescriptions: New oxycodone-acetaminophen [Endocet] 5-325 mg tablet 1 tab PO Q4H MDD 6 PRN (Reason: pain (scale score 7-10)) 7 Days Qty: 30 0RF No Action Trulicity 1.5 mg/0.5 mL pen injector 1.5 mg SC KAY sertraline 50 mg tablet 50 mg PO DAILY ropinirole [Requip] 0.25 mg tablet 0.25 mg PO QHS Rx Instructions: administer 1-3 hours before bedtime rosuvastatin [Crestor] 5 mg Tablet 5 mg PO QHS multivitamin Tablet 1 tablet PO DAILY Qty: 1 0RF lisinopril 40 mg tablet 40 mg PO DAILY omeprazole 20 mg tablet,delayed release (DR/EC) 20 mg PO DAILY hydrochlorothiazide 25 mg tablet 25 mg PO DAILY cholecalciferol (vitamin D3) 25 mcg (1,000 unit) tablet 25 mcg PO DAILY Referrals / Follow Up: Latanya Clay MD [Primary Care Provider] - Disposition Disposition (needs filled in before D/C Order can be placed): Home, Self Care
[2022-05-22 10:00] VITALS: BP 116/62; BP 129/69; PULSE 69; RESP 16; O2SAT 92
[2022-05-22 10:15] VITALS: BP 113/56; BP 129/69; PULSE 65; RESP 16; O2SAT 93
[2022-05-22 10:16] LABS: Bedside Glucose 177 mg/dL (74-106)
[2022-05-22 10:28] VITALS: BP 121/62; BP 129/69; PULSE 65; RESP 16; TEMP 36.3; O2SAT 92
[2022-05-22] MEDS: Ondansetron 4 MG/2 ML Vial IV (11:02)
[2022-05-22] MEDS: HYDROcodone Bitartrate/Apap 5/325 Tablet PO (11:02)
[2022-05-22 11:29] VITALS: BP 122/54; BP 129/69; PULSE 69; RESP 18; TEMP 36.4; O2SAT 94
== END 2022-05-22 11:32 | disposition home or self-care (01) ==
LOC: SDC 05:49 → AC 05:50
PROVIDERS: PCP Family Medicine; Referring Provider Orthopaedic Surgery Sports Medicine; Visit Provider Orthopaedic Surgery Sports Medicine
PROC: (CPT 29805; principal; 2022-05-22 07:10)
DX: S46.011A Strain of muscle(s) and tendon(s) of the rotator cuff of right shoulder, initial encounter (principal); E11.9 Type 2 diabetes mellitus without complications; S43.431A Superior glenoid labrum lesion of right shoulder, initial encounter; W19.XXXA Unspecified fall, initial encounter; M75.51 Bursitis of right shoulder; M25.311 Other instability, right shoulder; E78.2 Mixed hyperlipidemia; I10 Essential (primary) hypertension; G25.81 Restless legs syndrome; Z79.82 Long term (current) use of aspirin; Z79.84 Long term (current) use of oral hypoglycemic drugs; Z79.899 Other long term (current) drug therapy; Z87.891 Personal history of nicotine dependence
CPT/HCPCS: 29827; 29826; 29807; 29822; 64415; 36415; 80048; 82962; 83036; 85027; 93005; J7120; J2405